=== PATIENT | male | born 1960 | race Caucasian/White ===

== ENCOUNTER 2020-10-24 07:30 | Inpatient (IN) ==
[2020-10-29] MEDS ORDERED: Lactated Ringers 1000 ml BAG 1,000 ML IV SCH (06:00)
[2020-10-29] MEDS ORDERED: Heparin 5000 UNITS/ML 1 mL VIAL ONE (06:00)
[2020-10-29] MEDS ORDERED: Buffered Lidocaine 1% SYRIN 1 ml INTRADERM ONE (06:00)
[2020-10-29] MEDS ORDERED: Famotidine IV 10 MG/ML 2 ml VIAL (20 mg) ONE (06:01)
[2020-10-29] MEDS ORDERED: Clindamycin 900 MG/D5W BAG 900 MG/50 ML BAG IVPB ONE (06:01)
[2020-10-29] MEDS ORDERED: Bupivacaine 0.25% SDV 30 ML ONE (07:02)
[2020-10-29] MEDS ORDERED: fentaNYL 100 mcg/2 ml 50 MCG/ML VIAL ONE ×4 (07:16→11:15)
[2020-10-29] MEDS ORDERED: Lidocaine 2% PF 5 ML VIAL ONE (07:17)
[2020-10-29] MEDS ORDERED: Propofol 10 MG/ML 20 ML BTL ONE (07:17)
[2020-10-29] MEDS ORDERED: Midazolam 2 mg/2 ml VIAL 1 mg/ml 2 ml VIAL (2 mg) ONE (07:17)
[2020-10-29] MEDS ORDERED: Rocuronium 50 mg VIAL 10 mg/ml 5 ml VIAL (50 mg) ONE ×2 (07:18→07:53)
[2020-10-29] MEDS ORDERED: Phenylephrine 40 mcg/mL 10mL (400mcg) SYRINGE ONE (08:07)
[2020-10-29] MEDS ORDERED: Ondansetron 4 mg VIAL 2 MG/ML 2 ml VIAL ONE (08:31)
[2020-10-29] MEDS ORDERED: Dexamethasone IV 4 MG/ML VIAL 1 ml VIAL ONE (08:31)
[2020-10-29] MEDS ORDERED: EPHEDrine (Pressors) 50 MG/ML VIAL ONE (08:42)
[2020-10-29] MEDS ORDERED: Calcium CHLORIDE 10% SYRINGE 1 GM/10 ML ONE (08:44)
[2020-10-29] MEDS ORDERED: Naloxone 0.4 mg VIAL 0.4 mg/ml 1 ml VIAL IV PRN (09:01)
[2020-10-29] MEDS ORDERED: Ondansetron 4 mg VIAL 2 MG/ML 2 ml VIAL IV PRN (09:01)
[2020-10-29] MEDS ORDERED: DiMENhydriNATE IV 50 mg/ml 1 ml VIAL IV PUSH PRN (09:01)
[2020-10-29] MEDS ORDERED: Acetaminophen IV 1 GM/100ML 100 ML ONE (09:02)
[2020-10-29] MEDS ORDERED: Dextrose 50% Syringe 50 ml 25 GM/50 ML SYRINGE IV PUSH PRN (10:53)
[2020-10-29] MEDS: fentaNYL 100 mcg/2 ml 50 MCG/ML VIAL IV PRN ×3 (11:17→11:58)
[2020-10-29] MEDS: HYDROmorphone 0.5 MG/0.5 ML SYRINGE IV SLOW PU PRN ×2 (14:13→23:19)
[2020-10-29] MEDS: Heparin 5000 UNITS/ML 1 mL VIAL SUBCUT SCH ×2 (14:13→22:35)
[2020-10-29] MEDS: Lactated Ringers 1000 ml BAG 1,000 ML IV SCH (20:02)
[2020-10-30] MEDS: Lactated Ringers 1000 ml BAG 1,000 ML IV SCH (03:04)
[2020-10-30] MEDS: HYDROmorphone 0.5 MG/0.5 ML SYRINGE IV SLOW PU PRN ×2 (03:04→05:55)
[2020-10-30] MEDS: Heparin 5000 UNITS/ML 1 mL VIAL SUBCUT SCH ×3 (05:42→23:37)
[2020-10-30] MEDS: HYDROcodone/ACET. 7.5/325 LIQ 15 ML UDC PO PRN ×3 (09:50→20:17)
[2020-10-30] MEDS: D5W 1/2 NS KCl 20 meq 1000 ml 1,000 ML IV SCH ×2 (09:51→17:58)
[2020-10-31] MEDS: D5W 1/2 NS KCl 20 meq 1000 ml 1,000 ML IV SCH (01:40)
[2020-10-31] MEDS: HYDROcodone/ACET. 7.5/325 LIQ 15 ML UDC PO PRN ×2 (04:15→09:57)
[2020-10-31] MEDS: Heparin 5000 UNITS/ML 1 mL VIAL SUBCUT SCH (05:39)
[2020-10-31 11:00] VITALS: BP 150/80
[2020-11-01] MEDS ORDERED: Scopolamine PATCH Remove NOTE PATCH OFF ONE (09:02)
== END 2020-10-31 11:30 | disposition home or self-care (01) | DRG 403 ==
LOC: AA 10-29 05:31 → SSU 10-29 12:40
PROVIDERS: ADMIT Surgery; ATTEND Surgery